=== PATIENT | female | born 1945 | race Caucasian/White ===

== ENCOUNTER → 2017-02-15 | Outpatient (CLI) | payer MEDICARE, BC ==
[~2017-02-15] MED LIST: AMPICILLIN 500500 MG PO; ASPIR 8181 MG PO; ASPIRIN EC81 MG PO; ATIVAN1 MG PO; CILOSTAZOL100 MG PO; CLARITIN10 MG PO; CYMBALTA20 MG PO; EXELON 4.6 MG TD; EXELON1 EAC1 TD; ISOSORBIDE MONO60 MG PO; K-DUR TAB 10 M10 MEQ PO; KLOR-CON M2020 MEQ PO; LASIX 40 MG TAB40 MG PO; LIPITOR TAB 2020 MG PO; NAMZARIC PO; NEURONTIN 300300 MG PO; NITROSTAT 0.40.4 MG SL; NORCO 7.5-3251 EACH PO; NORVASC10 MG PO; PLAVIX 75 MG TA75 MG PO; PROTONIX40 MG PO; SINGULAIR10 MG PO; TOPROL XL 25 MG25 MG PO; VITAMIN B-1000 MCG/M IM; ZOLOFT50 MG PO
== END ==
LOC: KOH-I 14:20
DX: M13.851 Other specified arthritis, right hip (principal); M54.5 Low back pain; S32.019A Unspecified fracture of first lumbar vertebra, initial encounter for closed fracture
CPT/HCPCS: 72110; 73522

== ENCOUNTER → 2017-02-28 | Outpatient (CLI) | payer MEDICARE, BC | LOC: KOH-I 13:45 | DX: M51.36 Other intervertebral disc degeneration, lumbar region (principal); G89.4 Chronic pain syndrome; M43.8X6 Other specified deforming dorsopathies, lumbar region; M43.16 Spondylolisthesis, lumbar region; M99.73 Connective tissue and disc stenosis of intervertebral foramina of lumbar region | CPT/HCPCS: 72131 ==

== ENCOUNTER → 2017-03-08 | Outpatient (CLI) | payer MEDICARE, BC | LOC: NM 07:47 | DX: S32.010A Wedge compression fracture of first lumbar vertebra, initial encounter for closed fracture (principal); M81.0 Age-related osteoporosis without current pathological fracture | CPT/HCPCS: 77080; 78300; A9503 ==

== ENCOUNTER → 2017-03-10 | Outpatient (CLI) | payer MEDICARE, BC ==
[2017-03-10 11:39] LABS: HEMOGLOBIN 13.5 gm/dl (12.3-15.3); RED BLOOD COUNT 4.62 M/UL (4.00-5.10); WHITE BLOOD COUNT 7.5 K/UL (4.5-11.0)
[2017-03-10 11:59] LABS: BUN/CREATININE RATIO 12 (0-10)
== END ==
LOC: OPSV2 10:48
PROVIDERS: Orthopaedic Surgery
DX: Z01.810 Encounter for preprocedural cardiovascular examination (principal); Z01.812 Encounter for preprocedural laboratory examination; M84.48XA Pathological fracture, other site, initial encounter for fracture; I25.10 Atherosclerotic heart disease of native coronary artery without angina pectoris
CPT/HCPCS: 36415; 80048; 85027; 93005

== ENCOUNTER → 2017-03-13 | Day surgery (SDC) | payer MEDICARE, BC ==
[~2017-03-13] VITALS: Ht 152.4 cm; Wt 55.3 kg
== END | disposition home or self-care (01) ==
LOC: OR 08:52
DX: S32.019A Unspecified fracture of first lumbar vertebra, initial encounter for closed fracture (principal); M81.0 Age-related osteoporosis without current pathological fracture; E78.5 Hyperlipidemia, unspecified; I25.10 Atherosclerotic heart disease of native coronary artery without angina pectoris; K21.9 Gastro-esophageal reflux disease without esophagitis; I11.0 Hypertensive heart disease with heart failure; I50.9 Heart failure, unspecified; G89.29 Other chronic pain; M19.90 Unspecified osteoarthritis, unspecified site; Z79.82 Long term (current) use of aspirin; Z79.891 Long term (current) use of opiate analgesic; Z79.02 Long term (current) use of antithrombotics/antiplatelets; Z79.899 Other long term (current) drug therapy; Z85.828 Personal history of other malignant neoplasm of skin; Z90.710 Acquired absence of both cervix and uterus; Z95.1 Presence of aortocoronary bypass graft; Z90.49 Acquired absence of other specified parts of digestive tract; Z87.440 Personal history of urinary (tract) infections; Z87.19 Personal history of other diseases of the digestive system; Z86.73 Personal history of transient ischemic attack (TIA), and cerebral infarction without residual deficits; W19.XXXA Unspecified fall, initial encounter
CPT/HCPCS: J0690; J1885; J2250; J2370; J2710; J3010; J7120; Q9962

== ENCOUNTER → 2017-03-31 | Outpatient (CLI) | payer MEDICARE, BC | LOC: CT 13:00 | DX: M51.36 Other intervertebral disc degeneration, lumbar region (principal); M35.3 Polymyalgia rheumatica; M13.861 Other specified arthritis, right knee; B96.81 Helicobacter pylori [H. pylori] as the cause of diseases classified elsewhere; D50.0 Iron deficiency anemia secondary to blood loss (chronic); D50.8 Other iron deficiency anemias; D64.89 Other specified anemias; E78.2 Mixed hyperlipidemia; G89.4 Chronic pain syndrome; G90.09 Other idiopathic peripheral autonomic neuropathy; I50.20 Unspecified systolic (congestive) heart failure; I13.0 Hypertensive heart and chronic kidney disease with heart failure and stage 1 through stage 4 chronic kidney disease, or unspecified chronic kidney disease; N18.3 Chronic kidney disease, stage 3 (moderate); I25.10 Atherosclerotic heart disease of native coronary artery without angina pectoris; I25.118 Atherosclerotic heart disease of native coronary artery with other forms of angina pectoris; I73.89 Other specified peripheral vascular diseases; J44.9 Chronic obstructive pulmonary disease, unspecified; J45.20 Mild intermittent asthma, uncomplicated; K25.7 Chronic gastric ulcer without hemorrhage or perforation; K27.4 Chronic or unspecified peptic ulcer, site unspecified, with hemorrhage; K58.0 Irritable bowel syndrome with diarrhea; K59.1 Functional diarrhea; K64.8 Other hemorrhoids; M80.08XA Age-related osteoporosis with current pathological fracture, vertebra(e), initial encounter for fracture; Q27.33 Arteriovenous malformation of digestive system vessel; R06.02 Shortness of breath; R19.7 Diarrhea, unspecified; R23.8 Other skin changes; R53.83 Other fatigue; Z98.1 Arthrodesis status | CPT/HCPCS: 72131 ==

== ENCOUNTER 2021-02-20 05:38 | Inpatient (IN) | payer MEDICARE, BC ==
[~2021-02-20] VITALS: Ht 152.4 cm; Wt 49.9 kg
[~2021-02-20 05:38] MED LIST changes: +ASPIR-LOW81 MG PO; +BACTRIM DS TAB1 EACH PO; +BENTYL 20MG TAB20 MG PO; +BUMEX 1MG TABLET1 MG PO; +CEFUROXIME500 MG PO; +CLARITIN10 M2 PO; +CLOPIDOGREL75 MG PO; +COZAAR 25MG TAB25 MG PO; +CYMBALTA30 MG PO; +CYMBALTA60 MG PO; +DICYCLOMINE HCL20 MG PO; +DOXYCYCLINE HY100 MG PO; +ECOTRIN81 MG PO; +EXELON1 EAC2 TD; +FERROUS SULFAT325 MG PO; +ISOSORBIDE MON120 MG PO; -ISOSORBIDE MONO60 MG PO; +K-DUR TAB 20 M20 MEQ PO; +KEFLEX CAP 500500 MG PO; +KEFLEX250 MG PO; +LASIX40 MG PO; +LEVAQUIN500 MG PO; +MAGNESIUM400 M2 PO; +MEGACE 400400 MG/10 PO; +METOPROLOL SUCC25 MG PO; +METOPROLOL TART25 MG PO; +MORPHINE PUMP; +MYCOSTATIN OINT15 GM TOP; +NORCO 5-325 TA1 EACH PO; +NORVASC 5 MG TAB5 MG PO; +NYSTATIN100000 UNI PO; +OMNICEF 300 MG300 MG PO; +PLETAL 100 MG100 MG PO; +PROTONIX 40 MG40 M1 PO; +PROVENTIL HFA6.7 GM INH; +RANEXA1000 MG PO; +SYMBICORT 16010.2 GM INH; +TOPROL XL25 MG PO; +TYLENOL 325MG325 MG PO; +TYLENOL 500 MG500 MG PO; +VENTOLIN HFA 66.7 GM INH; +ZANAFLEX4 MG PO; +ZOFRAN ODT 4 MG4 MG SL
[2021-02-20 06:35] LABS: HEMOGLOBIN 10.9 gm/dl (12.3-15.3); RED BLOOD COUNT 3.66 M/UL (4.00-5.10); WHITE BLOOD COUNT 6.8 K/UL (4.5-11.0)
[2021-02-20 07:08] LABS: BUN/CREATININE RATIO 28 (0-10)
[2021-02-20] MEDS ORDERED: HARD NAILS2500 MCG PO (10:49)
[2021-02-20] MEDS ORDERED: TYLENOL325 MG PO (10:49)
[2021-02-20] MEDS ORDERED: DAILY VALUE1 EACH PO (10:50)
[2021-02-20] MEDS ORDERED: ZOLOFT50 MG PO (10:51)
[2021-02-20] MEDS ORDERED: ZYLOPRIM 100 M100 MG PO (10:51)
[2021-02-20] MEDS ORDERED: COZAAR 50MG TAB50 MG PO (10:51)
[2021-02-20] MEDS ORDERED: ISOSORBIDE MON120 MG PO (10:52)
[2021-02-21 05:49] LABS: HEMOGLOBIN 11.1 gm/dl (12.3-15.3); RED BLOOD COUNT 3.67 M/UL (4.00-5.10)
[2021-02-21] MEDS ORDERED: MACROBID 100 M100 MG PO (14:19)
[2021-03-15] MEDS ORDERED: ATORVASTATIN CA20 MG PO (09:15)
[2021-03-16] MEDS ORDERED: SINGULAIR10 MG PO (09:19)
== END 2021-02-21 17:20 | disposition home health service (06) | DRG 871 ==
LOC: ER1 05:38 → CDU 09:50 → MED SURG 4 17:27
PROVIDERS: Family Medicine; Physician Assistant; ADMIT Internal Medicine
DX: A41.9 Sepsis, unspecified organism (principal); G93.41 Metabolic encephalopathy; I50.43 Acute on chronic combined systolic (congestive) and diastolic (congestive) heart failure; N30.00 Acute cystitis without hematuria; N17.9 Acute kidney failure, unspecified; I13.0 Hypertensive heart and chronic kidney disease with heart failure and stage 1 through stage 4 chronic kidney disease, or unspecified chronic kidney disease; E86.0 Dehydration; Z20.822 Contact with and (suspected) exposure to COVID-19; B96.89 Other specified bacterial agents as the cause of diseases classified elsewhere; I25.10 Atherosclerotic heart disease of native coronary artery without angina pectoris; I49.5 Sick sinus syndrome; R63.0 Anorexia; I10 Essential (primary) hypertension; I95.9 Hypotension, unspecified; I27.20 Pulmonary hypertension, unspecified; I34.0 Nonrheumatic mitral (valve) insufficiency; I07.1 Rheumatic tricuspid insufficiency; G89.29 Other chronic pain; M54.9 Dorsalgia, unspecified; I73.9 Peripheral vascular disease, unspecified; N18.30 Chronic kidney disease, stage 3 unspecified; Z96.659 Presence of unspecified artificial knee joint; I25.2 Old myocardial infarction; Z98.49 Cataract extraction status, unspecified eye; Z88.6 Allergy status to analgesic agent; Z87.891 Personal history of nicotine dependence; Z95.1 Presence of aortocoronary bypass graft; Z95.0 Presence of cardiac pacemaker; Z85.828 Personal history of other malignant neoplasm of skin; Z87.312 Personal history of (healed) stress fracture
CPT/HCPCS: 36415; 70450; 71045; 80048; 80053; 81001; 82550; 82553; 83605; 83874; 84484; 85025; 85610; 87040; 87077; 87086; 87186; 93005; 94640; 99285; J0696; U0002

== ENCOUNTER 2021-03-14 17:30 | Emergency (ER) | payer MEDICARE, BC ==
[~2021-03-14 17:30] MED LIST changes: +COZAAR 50MG TAB50 MG PO; +DAILY VALUE1 EACH PO; +HARD NAILS2500 MCG PO; +MACROBID 100 M100 MG PO; +TYLENOL325 MG PO; +ZYLOPRIM 100 M100 MG PO
[2021-03-14 20:04] LABS: HEMOGLOBIN 12.3 gm/dl (12.3-15.3); RED BLOOD COUNT 4.01 M/UL (4.00-5.10); WHITE BLOOD COUNT 7.1 K/UL (4.5-11.0)
[2021-03-14] MEDS ORDERED: MACROBID 100 M100 MG PO (21:34)
[2021-03-15] MEDS ORDERED: ATORVASTATIN CA20 MG PO (09:15)
[2021-03-16] MEDS ORDERED: SINGULAIR10 MG PO (09:19)
== END 2021-03-14 22:18 | disposition home or self-care (01) ==
LOC: ER1 17:30
PROVIDERS: Physician Assistant
DX: N39.0 Urinary tract infection, site not specified (principal); I11.0 Hypertensive heart disease with heart failure; Z90.49 Acquired absence of other specified parts of digestive tract; I50.9 Heart failure, unspecified; Z90.710 Acquired absence of both cervix and uterus
CPT/HCPCS: 80053; 81001; 85025; 99284

== ENCOUNTER 2021-03-16 09:46 | Inpatient (IN) | payer MEDICARE, BC ==
[~2021-03-16] VITALS: Ht 152.4 cm; Wt 53.8 kg
[~2021-03-16 09:46] MED LIST changes: +ATORVASTATIN CA20 MG PO
[2021-03-16] MEDS ORDERED: EXELON1 EAC2 TD (10:52)
[2021-03-16 11:10] LABS: RED BLOOD COUNT 3.93 M/UL (4.00-5.10); WHITE BLOOD COUNT 6.8 K/UL (4.5-11.0)
[2021-03-16] MEDS ORDERED: ATIVAN 1MG TABLE1 MG PO (15:53)
[2021-03-16] MEDS ORDERED: MACROBID 100 M100 MG PO (15:53)
[2021-03-16] MEDS ORDERED: PLAVIX 75 MG TA75 MG PO (15:54)
[2021-03-16] MEDS ORDERED: K-DUR TAB 20 M20 MEQ PO (15:56)
[2021-03-16] MEDS ORDERED: AMLODIPINE BESYL5 MG PO (15:57)
[2021-03-16] MEDS ORDERED: BUMETANIDE1 MG PO (16:00)
[2021-03-16] MEDS ORDERED: ISOSORBIDE MON120 MG PO (16:02)
[2021-03-16] MEDS ORDERED: MORPHINE PUMP (16:06)
[2021-03-16] MEDS ORDERED: VITAMIN D325 MCG PO (16:19)
[2021-03-17 03:21] LABS: RED BLOOD COUNT 3.62 M/UL (4.00-5.10)
[2021-03-17 03:24] LABS: WHITE BLOOD COUNT 3.9 K/UL (4.5-11.0)
[2021-03-18] MEDS ORDERED: ISOSORBIDE MONO60 MG PO (11:24)
[2021-03-18] MEDS ORDERED: AMLODIPINE BESY10 MG PO (11:24)
[2021-03-18] MEDS ORDERED: OMNICEF 300 MG300 MG PO (11:24)
== END 2021-03-18 13:00 | disposition home or self-care (01) | DRG 682 ==
LOC: ER1 09:46 → CDU 13:41 → PROG CARE 13:41
PROVIDERS: Physician Assistant; Physician Assistant Medical; ADMIT Internal Medicine
PROC: 3E033XZ Introduction of Vasopressor into Peripheral Vein, Percutaneous Approach (ICD-10-PCS; principal; 2021-03-16)
DX: N17.9 Acute kidney failure, unspecified (principal); J96.01 Acute respiratory failure with hypoxia; N39.0 Urinary tract infection, site not specified; E87.1 Hypo-osmolality and hyponatremia; I50.42 Chronic combined systolic (congestive) and diastolic (congestive) heart failure; I13.0 Hypertensive heart and chronic kidney disease with heart failure and stage 1 through stage 4 chronic kidney disease, or unspecified chronic kidney disease; I95.2 Hypotension due to drugs; Z20.822 Contact with and (suspected) exposure to COVID-19; I27.20 Pulmonary hypertension, unspecified; I34.0 Nonrheumatic mitral (valve) insufficiency; I73.9 Peripheral vascular disease, unspecified; G89.29 Other chronic pain; N18.30 Chronic kidney disease, stage 3 unspecified; I25.10 Atherosclerotic heart disease of native coronary artery without angina pectoris; T50.2X5A Adverse effect of carbonic-anhydrase inhibitors, benzothiadiazides and other diuretics, initial encounter; K59.00 Constipation, unspecified; E78.5 Hyperlipidemia, unspecified; Z96.653 Presence of artificial knee joint, bilateral; D63.1 Anemia in chronic kidney disease; E86.1 Hypovolemia; I49.5 Sick sinus syndrome; M35.3 Polymyalgia rheumatica; K21.9 Gastro-esophageal reflux disease without esophagitis; F41.9 Anxiety disorder, unspecified; F32.9 Major depressive disorder, single episode, unspecified; F17.210 Nicotine dependence, cigarettes, uncomplicated; I25.2 Old myocardial infarction; Z87.440 Personal history of urinary (tract) infections; Z95.0 Presence of cardiac pacemaker; Z95.1 Presence of aortocoronary bypass graft; Z95.5 Presence of coronary angioplasty implant and graft; Z85.828 Personal history of other malignant neoplasm of skin; Z87.81 Personal history of (healed) traumatic fracture; Z98.42 Cataract extraction status, left eye; Z98.41 Cataract extraction status, right eye; Z88.1 Allergy status to other antibiotic agents; Z86.73 Personal history of transient ischemic attack (TIA), and cerebral infarction without residual deficits; Z90.710 Acquired absence of both cervix and uterus; Z90.49 Acquired absence of other specified parts of digestive tract; Z82.62 Family history of osteoporosis; Z82.5 Family history of asthma and other chronic lower respiratory diseases
CPT/HCPCS: 36415; 36600; 70450; 71045; 80053; 81001; 82550; 82553; 82803; 83605; 83874; 83880; 84484; 85025; 87040; 93005; 96365; 99284; 99285; J0696; J7030; Q9967; U0002

== ENCOUNTER → 2021-05-28 | Outpatient (CLI) | payer MEDICARE, BC ==
[~2021-05-28] MED LIST changes: +ADULT LOW DOSE81 MG PO; +AMLODIPINE BESY10 MG PO; +AMLODIPINE BESYL5 MG PO; +ATIVAN 1MG TABLE1 MG PO; +BUMETANIDE1 MG PO; +CEFUROXIME250 MG PO; +ISOSORBIDE MONO60 MG PO; +MONTELUKAST SOD10 MG PO; +SERTRALINE HCL50 MG PO; +VITAMIN D325 MC6 PO; +VITAMIN D325 MCG PO; +ZANAFLEX 4 MG TA4 MG PO; +ZYLOPRIM100 MG PO
== END ==
LOC: KOH-I 15:23
DX: M51.36 Other intervertebral disc degeneration, lumbar region (principal); M47.816 Spondylosis without myelopathy or radiculopathy, lumbar region
CPT/HCPCS: 72110

== ENCOUNTER 2021-07-25 14:10 | Inpatient (IN) | payer MEDICARE, BC ==
[~2021-07-25] VITALS: Ht 152.4 cm; Wt 56.3 kg
[~2021-07-25 14:10] MED LIST changes: -ADULT LOW DOSE81 MG PO; -CEFUROXIME250 MG PO; -MONTELUKAST SOD10 MG PO; -SERTRALINE HCL50 MG PO; -VITAMIN D325 MC6 PO; -ZANAFLEX 4 MG TA4 MG PO; -ZYLOPRIM100 MG PO
[2021-07-25 14:56] LABS: HEMOGLOBIN 11.2 gm/dl (12.3-15.3); RED BLOOD COUNT 3.95 M/UL (4.00-5.10); WHITE BLOOD COUNT 6.4 K/UL (4.5-11.0)
[2021-07-25 15:17] LABS: BUN/CREATININE RATIO 11 (0-10)
[2021-07-25] MEDS ORDERED: PLAVIX 75 MG TA75 MG PO (20:56)
[2021-07-25] MEDS ORDERED: SERTRALINE HCL50 MG PO (20:58)
[2021-07-25] MEDS ORDERED: ISOSORBIDE MONO60 MG PO (20:58)
[2021-07-25] MEDS ORDERED: ZYLOPRIM100 MG PO (20:59)
[2021-07-25] MEDS ORDERED: LIPITOR TAB 2020 MG PO (21:00)
[2021-07-25] MEDS ORDERED: VITAMIN D325 MC6 PO (21:00)
[2021-07-25] MEDS ORDERED: MONTELUKAST SOD10 MG PO (21:01)
[2021-07-25] MEDS ORDERED: AMLODIPINE BESYL5 MG PO (21:01)
[2021-07-25] MEDS ORDERED: EXELON1 EAC2 TD (21:02)
[2021-07-25] MEDS ORDERED: MORPHINE PUMP (21:04)
[2021-07-25] MEDS ORDERED: ATIVAN1 MG PO (21:04)
[2021-07-25] MEDS ORDERED: ADULT LOW DOSE81 MG PO (21:05)
[2021-07-25] MEDS ORDERED: ZANAFLEX 4 MG TA4 MG PO (21:05)
[2021-07-26 03:47] LABS: RED BLOOD COUNT 3.84 M/UL (4.00-5.10); WHITE BLOOD COUNT 5.4 K/UL (4.5-11.0)
[2021-07-27 03:37] LABS: HEMOGLOBIN 11.7 gm/dl (12.3-15.3); RED BLOOD COUNT 4.12 M/UL (4.00-5.10); WHITE BLOOD COUNT 4.9 K/UL (4.5-11.0)
[2021-07-27] MEDS ORDERED: CEFUROXIME250 MG PO (08:49)
== END 2021-07-27 13:11 | disposition home health service (06) | DRG 689 ==
LOC: ER1 14:10 → PROG CARE 17:19 → CDU 17:19 → PROG CARE 07-26 17:04
PROVIDERS: Physician Assistant; ADMIT Internal Medicine
DX: N30.00 Acute cystitis without hematuria (principal); G93.41 Metabolic encephalopathy; J96.01 Acute respiratory failure with hypoxia; Z20.822 Contact with and (suspected) exposure to COVID-19; I50.42 Chronic combined systolic (congestive) and diastolic (congestive) heart failure; I13.0 Hypertensive heart and chronic kidney disease with heart failure and stage 1 through stage 4 chronic kidney disease, or unspecified chronic kidney disease; B96.20 Unspecified Escherichia coli [E. coli] as the cause of diseases classified elsewhere; F03.90 Unspecified dementia, unspecified severity, without behavioral disturbance, psychotic disturbance, mood disturbance, and anxiety; E87.6 Hypokalemia; I16.0 Hypertensive urgency; I27.20 Pulmonary hypertension, unspecified; N18.30 Chronic kidney disease, stage 3 unspecified; I08.1 Rheumatic disorders of both mitral and tricuspid valves; I73.9 Peripheral vascular disease, unspecified; Z96.659 Presence of unspecified artificial knee joint; F17.210 Nicotine dependence, cigarettes, uncomplicated; I49.5 Sick sinus syndrome; I25.10 Atherosclerotic heart disease of native coronary artery without angina pectoris; Z95.1 Presence of aortocoronary bypass graft; Z87.440 Personal history of urinary (tract) infections; I25.2 Old myocardial infarction; Z95.0 Presence of cardiac pacemaker; Z98.42 Cataract extraction status, left eye; Z98.41 Cataract extraction status, right eye; Z88.1 Allergy status to other antibiotic agents; Z87.310 Personal history of (healed) osteoporosis fracture; Z90.710 Acquired absence of both cervix and uterus
CPT/HCPCS: 36415; 36600; 51701; 70450; 71045; 80048; 80053; 81001; 82550; 82553; 82803; 83605; 83874; 83880; 84484; 85025; 87040; 87077; 87086; 87186; 93005; 96374; 99285; J0696; U0002

== ENCOUNTER 2021-09-21 20:22 | Inpatient (IN) | payer MEDICARE, BC ==
[~2021-09-21] VITALS: Ht 152.4 cm; Wt 55.8 kg
[~2021-09-21 20:22] MED LIST changes: +ADULT LOW DOSE81 MG PO; +CEFUROXIME250 MG PO; +MONTELUKAST SOD10 MG PO; +SERTRALINE HCL50 MG PO; +VITAMIN D325 MC6 PO; +ZANAFLEX 4 MG TA4 MG PO; +ZYLOPRIM100 MG PO
[2021-09-21 20:54] LABS: HEMOGLOBIN 12.2 gm/dl (12.3-15.3); RED BLOOD COUNT 4.17 M/UL (4.00-5.10); WHITE BLOOD COUNT 6.3 K/UL (4.5-11.0)
[2021-09-22 07:41] LABS: HEMOGLOBIN 12.9 gm/dl (12.3-15.3); RED BLOOD COUNT 4.41 M/UL (4.00-5.10); WHITE BLOOD COUNT 5.4 K/UL (4.5-11.0)
[2021-09-23 07:29] LABS: HEMOGLOBIN 13.2 gm/dl (12.3-15.3); RED BLOOD COUNT 4.62 M/UL (4.00-5.10); WHITE BLOOD COUNT 5.7 K/UL (4.5-11.0)
[2021-09-23 08:07] LABS: BUN/CREATININE RATIO 10 (0-10)
[2021-09-24 05:49] LABS: HEMOGLOBIN 13.2 gm/dl (12.3-15.3); RED BLOOD COUNT 4.51 M/UL (4.00-5.10); WHITE BLOOD COUNT 4.4 K/UL (4.5-11.0)
--- NOTE | 2021-09-24 10:21 | NUR ---
TELEMETRY NOTIFICATION OF V-TACH. PATIENT IS ALERT, VERBAL. JUST AMBULATED TO THE RESTROOM. PATIENT DENIES PAIN, DENIES SHORTNESS OF BREATH. BP 179/86, HEART RATE CURRENTLY 106. NOTIFIED DR. CULP, NEW ORDER NOTED FOR STAT EKG. WILL NOTIFY OF RESULTS.
== END 2021-09-24 15:28 | disposition home health service (06) | DRG 689 ==
LOC: ER1 20:22 → PROG CARE 22:36 → M/S 22:36 → CDU 22:36 → PROG CARE 09-22 04:37 → M/S 09-22 16:47
PROVIDERS: Emergency Medicine; Internal Medicine; ADMIT Internal Medicine
DX: N30.00 Acute cystitis without hematuria (principal); G93.41 Metabolic encephalopathy; I13.0 Hypertensive heart and chronic kidney disease with heart failure and stage 1 through stage 4 chronic kidney disease, or unspecified chronic kidney disease; I50.42 Chronic combined systolic (congestive) and diastolic (congestive) heart failure; N17.9 Acute kidney failure, unspecified; Z16.12 Extended spectrum beta lactamase (ESBL) resistance; Z20.822 Contact with and (suspected) exposure to COVID-19; F03.90 Unspecified dementia, unspecified severity, without behavioral disturbance, psychotic disturbance, mood disturbance, and anxiety; I73.9 Peripheral vascular disease, unspecified; E78.5 Hyperlipidemia, unspecified; I27.20 Pulmonary hypertension, unspecified; B96.20 Unspecified Escherichia coli [E. coli] as the cause of diseases classified elsewhere; I49.5 Sick sinus syndrome; I34.0 Nonrheumatic mitral (valve) insufficiency; N18.30 Chronic kidney disease, stage 3 unspecified; I25.10 Atherosclerotic heart disease of native coronary artery without angina pectoris; Z95.1 Presence of aortocoronary bypass graft; Z85.828 Personal history of other malignant neoplasm of skin; Z95.0 Presence of cardiac pacemaker; I25.2 Old myocardial infarction; Z88.1 Allergy status to other antibiotic agents; Z95.5 Presence of coronary angioplasty implant and graft; Z87.891 Personal history of nicotine dependence
CPT/HCPCS: 36415; 70450; 70496; 70498; 71045; 80048; 80053; 81001; 82550; 82553; 83605; 83735; 83874; 83880; 84100; 84439; 84443; 84484; 85025; 85027; 85610; 85730; 87040; 87077; 87086; 87186; 93005; 99285; J0360; J0696; J1335; J1644; Q9967; U0002

== ENCOUNTER → 2021-09-25 | Outpatient (CLI) | payer MEDICARE, BC ==
[~2021-09-25] MED LIST changes: +HYDROCODON-ACE1 EAC4 PO
== END ==
LOC: OPSV 07:00
DX: N39.0 Urinary tract infection, site not specified (principal)
CPT/HCPCS: 96365; J1335

== ENCOUNTER → 2021-09-26 | Outpatient (CLI) | payer MEDICARE, BC ==
[~2021-09-26] VITALS: Ht 152.4 cm; Wt 55.8 kg
== END ==
LOC: OPSV 06:53
DX: N39.0 Urinary tract infection, site not specified (principal); Z16.12 Extended spectrum beta lactamase (ESBL) resistance
CPT/HCPCS: 96365; J1335

== ENCOUNTER → 2021-09-27 | Outpatient (CLI) | payer MEDICARE, BC ==
[~2021-09-27] VITALS: Ht 152.4 cm; Wt 55.8 kg
== END ==
LOC: OPSV 08:00
DX: N30.00 Acute cystitis without hematuria (principal); G93.41 Metabolic encephalopathy
CPT/HCPCS: 96365; J1335

== ENCOUNTER → 2021-09-28 | Outpatient (CLI) | payer MEDICARE, BC | LOC: OPSV 08:00 | DX: N39.0 Urinary tract infection, site not specified (principal); Z16.12 Extended spectrum beta lactamase (ESBL) resistance | CPT/HCPCS: 96365; J1335 ==

== ENCOUNTER 2021-09-29 13:57 | Inpatient (IN) | payer MEDICARE, BC ==
[~2021-09-29] VITALS: Ht 172.7 cm; Wt 53.1 kg
[~2021-09-29 13:57] MED LIST changes: -HYDROCODON-ACE1 EAC4 PO
[2021-09-29 16:17] LABS: RED BLOOD COUNT 3.79 M/UL (4.00-5.10); WHITE BLOOD COUNT 5.1 K/UL (4.5-11.0)
[2021-09-29 16:19] LABS: HEMOGLOBIN 10.7 gm/dl (12.3-15.3)
[2021-09-29 16:46] LABS: BUN/CREATININE RATIO 7 (0-10)
[2021-09-30 06:46] LABS: HEMOGLOBIN 12.2 gm/dl (12.3-15.3); WHITE BLOOD COUNT 5.7 K/UL (4.5-11.0)
[2021-09-30 06:52] LABS: RED BLOOD COUNT 4.32 M/UL (4.00-5.10)
[2021-09-30 07:05] LABS: BUN/CREATININE RATIO 7 (0-10)
[2021-10-01 07:35] LABS: HEMOGLOBIN 13.4 gm/dl (12.3-15.3); WHITE BLOOD COUNT 5.3 K/UL (4.5-11.0)
[2021-10-01 07:36] LABS: RED BLOOD COUNT 4.78 M/UL (4.00-5.10)
--- NOTE | 2021-10-01 12:06 | NUR ---
1145 02 sat 83% on room air.
[2021-10-01] MEDS ORDERED: HYDROCODON-ACE1 EAC4 PO (17:10)
== END 2021-10-01 18:30 | disposition home or self-care (01) | DRG 551 ==
LOC: ER1 13:57 → CDU 18:49 → M/S 18:49
PROVIDERS: Student in an Organized Health Care Education/Training Program; ADMIT Internal Medicine
PROC: B24BZZZ Ultrasonography of Heart with Aorta (ICD-10-PCS; principal; 2021-09-30)
DX: S32.039A Unspecified fracture of third lumbar vertebra, initial encounter for closed fracture (principal); J96.01 Acute respiratory failure with hypoxia; Z20.822 Contact with and (suspected) exposure to COVID-19; J98.11 Atelectasis; I13.0 Hypertensive heart and chronic kidney disease with heart failure and stage 1 through stage 4 chronic kidney disease, or unspecified chronic kidney disease; I50.42 Chronic combined systolic (congestive) and diastolic (congestive) heart failure; E44.0 Moderate protein-calorie malnutrition; Z68.1 Body mass index [BMI] 19.9 or less, adult; I49.5 Sick sinus syndrome; G89.29 Other chronic pain; I27.20 Pulmonary hypertension, unspecified; I34.0 Nonrheumatic mitral (valve) insufficiency; N18.30 Chronic kidney disease, stage 3 unspecified; I73.9 Peripheral vascular disease, unspecified; W01.0XXA Fall on same level from slipping, tripping and stumbling without subsequent striking against object, initial encounter; Z95.0 Presence of cardiac pacemaker; Y92.009 Unspecified place in unspecified non-institutional (private) residence as the place of occurrence of the external cause; Z88.1 Allergy status to other antibiotic agents; Z87.440 Personal history of urinary (tract) infections; Z95.1 Presence of aortocoronary bypass graft; Z82.49 Family history of ischemic heart disease and other diseases of the circulatory system; Z97.8 Presence of other specified devices; Z90.49 Acquired absence of other specified parts of digestive tract
CPT/HCPCS: ECHO; 36415; 36600; 71045; 80048; 80053; 81001; 82550; 82553; 82803; 83605; 83735; 83874; 83880; 84484; 85025; 85027; 87040; 87077; 87086; 87186; 93005; 93306; 99285; J1650; J3486; Q9967; U0002

== ENCOUNTER → 2021-12-08 | Outpatient (CLI) | payer MEDICARE, BC ==
[~2021-12-08] MED LIST changes: +HYDROCODON-ACE1 EAC4 PO
== END ==
LOC: KOH-I 14:49
DX: W19.XXXA Unspecified fall, initial encounter (principal); G31.9 Degenerative disease of nervous system, unspecified
CPT/HCPCS: 70450

== ENCOUNTER → 2021-12-21 | Outpatient (CLI) | payer MEDICARE, BC | LOC: CT 10:45 | DX: I65.23 Occlusion and stenosis of bilateral carotid arteries (principal) | CPT/HCPCS: 36415; 70498; 82565; 84520; Q9967 ==

== ENCOUNTER 2021-12-29 10:27 | Emergency (ER) | payer MEDICARE, BC ==
[2021-12-29 12:28] LABS: HEMOGLOBIN 11.6 gm/dl (12.3-15.3); RED BLOOD COUNT 4.04 M/UL (4.00-5.10)
[2021-12-29 12:41] LABS: BUN/CREATININE RATIO 9 (0-10)
== END 2021-12-29 23:41 | disposition short-term general hospital (02) ==
LOC: ER1 10:27
PROVIDERS: Emergency Medicine
DX: F23 Brief psychotic disorder (principal); Z20.822 Contact with and (suspected) exposure to COVID-19
CPT/HCPCS: 80048; 80307; 81001; 83605; 84484; 85025; 87040; 93005; 96374; 99285; G0480; J0360; U0002

== ENCOUNTER → 2022-01-06 | Outpatient (CLI) | payer MEDICARE, BC | LOC: OPSV 14:00 | DX: N30.00 Acute cystitis without hematuria (principal) | CPT/HCPCS: 96372; J0696 ==

== ENCOUNTER → 2022-01-07 | Outpatient (CLI) | payer MEDICARE, BC ==
[~2022-01-07] VITALS: Ht 152.4 cm; Wt 52.2 kg
== END ==
LOC: OPSV 14:49
DX: N30.00 Acute cystitis without hematuria (principal)
CPT/HCPCS: 96372; J0696

== ENCOUNTER → 2022-01-08 | Outpatient (CLI) | payer MEDICARE, BC ==
[~2022-01-08] VITALS: Ht 152.4 cm; Wt 52.2 kg
== END ==
LOC: OPSV 07:00 → EROP 10:39
DX: N30.00 Acute cystitis without hematuria (principal)
CPT/HCPCS: 96372; J0696

== ENCOUNTER 2022-01-09 13:34 | Emergency (ER) | payer MEDICARE, BC ==
[2022-01-09 15:14] LABS: RED BLOOD COUNT 3.76 M/UL (4.00-5.10); WHITE BLOOD COUNT 5.4 K/UL (4.5-11.0)
== END 2022-01-09 17:50 | disposition home or self-care (01) ==
LOC: ER1 13:34 → OPSV 13:34 → EDSTATUS 15:00 → ER1 17:50
PROVIDERS: Family Medicine
DX: N28.9 Disorder of kidney and ureter, unspecified (principal); F03.91 Unspecified dementia, unspecified severity, with behavioral disturbance; I95.9 Hypotension, unspecified; R19.7 Diarrhea, unspecified; R09.02 Hypoxemia; R82.81 Pyuria; Z20.822 Contact with and (suspected) exposure to COVID-19
CPT/HCPCS: 36600; 71045; 80053; 81001; 82550; 82553; 82803; 83605; 83880; 84484; 85025; 87040; 87086; 93005; 96374; 99284; J0696; J7030; U0002

== ENCOUNTER → 2022-01-10 | Outpatient (CLI) | payer MEDICARE, BC ==
[~2022-01-10] VITALS: Ht 152.4 cm; Wt 52.2 kg
== END ==
LOC: OPSV 14:37
DX: N30.00 Acute cystitis without hematuria (principal)
CPT/HCPCS: 96372; J0696

== ENCOUNTER → 2022-01-11 | Outpatient (CLI) | payer MEDICARE, BC ==
[~2022-01-11] VITALS: Ht 152.4 cm; Wt 52.2 kg
== END ==
LOC: OPSV 14:34
DX: N30.00 Acute cystitis without hematuria (principal)
CPT/HCPCS: 96372

== ENCOUNTER 2022-02-02 10:13 | Emergency (ER) | payer MEDICARE, BC ==
[2022-02-02 11:52] LABS: HEMOGLOBIN 12.1 gm/dl (12.3-15.3); RED BLOOD COUNT 4.24 M/UL (4.00-5.10); WHITE BLOOD COUNT 4.3 K/UL (4.5-11.0)
[2022-02-02] MEDS ORDERED: KLOR-CON M2020 MEQ PO (16:23)
[2022-02-03 23:45] LABS: KPC-CARBAPENEM-RESISTANCE GENE Not Detected (Negative); STAPHYLOCOCCUS AUREUS Not Detected (Negative); STREP AGALACTIAE (GROUP B) Not Detected (Negative); STREP PYOGENES (GROUP A) Not Detected (Negative); STREPTOCOCCUS Not Detected (Negative); vanA/B (VANCOMYCIN RESIST GENE Not Detected (Negative)
[2022-02-03 23:46] LABS: CANDIDA ALBICANS Not Detected (Negative); CANDIDA KRUSEI Not Detected (Negative); CANDIDA TROPICALIS Not Detected (Negative); ESCHERICHIA COLI Not Detected (Negative); HAEMOPHILUS INFLUENZAE Not Detected (Negative); KLEBSIELLA OXYTOCA Not Detected (Negative); KLEBSIELLA PNEUMONIAE Not Detected (Negative); PROTEUS Not Detected (Negative); PSEUDOMONAS AERUGINOSA Not Detected (Negative); SERRATIA MARCESANS Not Detected (Negative)
[2022-02-04 01:03] LABS: STAPHYLOCOCCUS DETECTED (Negative)
== END 2022-02-02 17:14 | disposition home or self-care (01) ==
LOC: ER1 10:13
PROVIDERS: Emergency Medicine
DX: E87.6 Hypokalemia (principal); I11.0 Hypertensive heart disease with heart failure; I50.9 Heart failure, unspecified; I25.10 Atherosclerotic heart disease of native coronary artery without angina pectoris
CPT/HCPCS: 36600; 51701; 70450; 71045; 80053; 81001; 82550; 82553; 82803; 82962; 84484; 85025; 87040; 87150; 93005; 96365; 96375; 99285; J3480

== ENCOUNTER → 2022-05-19 | Outpatient (CLI) | payer MEDICARE, BC ==
[~2022-05-19] MED LIST changes: +AUGMENTIN 500-500 MG PO; +ESTRADIOL42.5 GM VG; +LOSARTAN POTASS25 MG PO; +MIRTAZAPINE7.5 MG PO; +NAMENDA 5 MG TAB5 MG PO; +QUETIAPINE FUMA25 MG PO
== END ==
LOC: CT 08:00
DX: M25.551 Pain in right hip (principal); W01.0XXA Fall on same level from slipping, tripping and stumbling without subsequent striking against object, initial encounter; R93.7 Abnormal findings on diagnostic imaging of other parts of musculoskeletal system; R93.41 Abnormal radiologic findings on diagnostic imaging of renal pelvis, ureter, or bladder
CPT/HCPCS: 72192

== ENCOUNTER 2022-06-07 17:19 | Emergency (ER) | payer MEDICARE, BC | END 2022-06-07 20:57 | disposition home or self-care (01) | LOC: ER1 17:19 | DX: S51.811A Laceration without foreign body of right forearm, initial encounter (principal); I10 Essential (primary) hypertension; Z79.02 Long term (current) use of antithrombotics/antiplatelets; W01.10XA Fall on same level from slipping, tripping and stumbling with subsequent striking against unspecified object, initial encounter; Y92.009 Unspecified place in unspecified non-institutional (private) residence as the place of occurrence of the external cause; Z23 Encounter for immunization | CPT/HCPCS: 12005; 73090; 90471; 90715; 99283 ==

== ENCOUNTER 2022-07-05 10:02 | Emergency (ER) | payer MEDICARE, BC ==
[2022-07-05 11:01] LABS: HEMOGLOBIN 10.4 gm/dl (12.3-15.3); RED BLOOD COUNT 3.62 M/UL (4.00-5.10); WHITE BLOOD COUNT 5.8 K/UL (4.5-11.0)
[2022-07-05] MEDS ORDERED: OMNICEF 300 MG300 MG PO (13:48)
== END 2022-07-05 14:08 | disposition home or self-care (01) ==
LOC: ER1 10:02
PROVIDERS: Physician Assistant
DX: S32.039A Unspecified fracture of third lumbar vertebra, initial encounter for closed fracture (principal); S70.01XA Contusion of right hip, initial encounter; N39.0 Urinary tract infection, site not specified; I51.9 Heart disease, unspecified; Z95.1 Presence of aortocoronary bypass graft; W19.XXXA Unspecified fall, initial encounter
CPT/HCPCS: 51701; 70450; 72125; 72128; 72131; 73502; 80053; 81001; 82550; 82553; 84484; 85025; 87086; 93005; 96374; 99284; J0696

== ENCOUNTER 2022-07-22 12:57 | Inpatient (IN) | payer MEDICARE, BC ==
[~2022-07-22] VITALS: Ht 152.4 cm; Wt 54.9 kg
[~2022-07-22 12:57] MED LIST changes: -QUETIAPINE FUMA25 MG PO; +QUETIAPINE FUMA50 MG PO
[2022-07-22 14:31] LABS: HEMOGLOBIN 10.7 gm/dl (12.3-15.3); RED BLOOD COUNT 3.75 M/UL (4.00-5.10); WHITE BLOOD COUNT 4.9 K/UL (4.5-11.0)
[2022-07-22] MEDS ORDERED: AMLODIPINE BESYL5 MG PO (18:25)
[2022-07-22] MEDS ORDERED: CEPHALEXIN250 MG PO (18:26)
[2022-07-22] MEDS ORDERED: LEVOTHYROXINE25 MCG PO (18:27)
[2022-07-22] MEDS ORDERED: MONTELUKAST SOD10 MG PO (18:28)
[2022-07-23 04:13] LABS: HEMOGLOBIN 11.8 gm/dl (12.3-15.3); RED BLOOD COUNT 4.12 M/UL (4.00-5.10); WHITE BLOOD COUNT 4.1 K/UL (4.5-11.0)
[2022-07-23 05:25] LABS: BUN/CREATININE RATIO 11 (0-10)
[2022-07-25 03:57] LABS: HEMOGLOBIN 11.9 gm/dl (12.3-15.3); RED BLOOD COUNT 4.14 M/UL (4.00-5.10)
[2022-07-25 04:01] LABS: WHITE BLOOD COUNT 2.8 K/UL (4.5-11.0)
[2022-07-25] MEDS ORDERED: ASPIRIN EC81 MG PO (11:24)
[2022-07-25] MEDS ORDERED: DOXYCYCLINE HY100 MG PO (11:24)
[2022-07-25] MEDS ORDERED: CEFDINIR300 MG PO (11:24)
[2022-07-25] MEDS ORDERED: DECADRON6 MG PO (11:24)
[2022-07-25] MEDS ORDERED: METOPROLOL TART25 MG PO (11:24)
[2022-07-25] MEDS ORDERED: LASIX20 MG PO (11:31)
== END 2022-07-25 12:35 | disposition home or self-care (01) | DRG 871 ==
LOC: ER1 12:57 → PROG CARE 17:06 → CDU 17:06 → PROG CARE 22:03
PROVIDERS: Family Medicine; Physician Assistant Medical; ADMIT Internal Medicine
PROC: 8E0ZXY6 Isolation (ICD-10-PCS; principal; 2022-07-22)
PROC: 3E03329 Introduction of Other Anti-infective into Peripheral Vein, Percutaneous Approach (ICD-10-PCS; 2022-07-22)
PROC: 3E033XZ Introduction of Vasopressor into Peripheral Vein, Percutaneous Approach (ICD-10-PCS; 2022-07-22)
PROC: B24BZZZ Ultrasonography of Heart with Aorta (ICD-10-PCS; 2022-07-23)
DX: A41.9 Sepsis, unspecified organism (principal); I21.A1 Myocardial infarction type 2; R65.21 Severe sepsis with septic shock; U07.1 COVID-19; J96.21 Acute and chronic respiratory failure with hypoxia; J12.82 Pneumonia due to coronavirus disease 2019; N30.00 Acute cystitis without hematuria; I13.0 Hypertensive heart and chronic kidney disease with heart failure and stage 1 through stage 4 chronic kidney disease, or unspecified chronic kidney disease; I50.32 Chronic diastolic (congestive) heart failure; E55.9 Vitamin D deficiency, unspecified; E03.9 Hypothyroidism, unspecified; F03.90 Unspecified dementia, unspecified severity, without behavioral disturbance, psychotic disturbance, mood disturbance, and anxiety; I73.9 Peripheral vascular disease, unspecified; M54.9 Dorsalgia, unspecified; G89.29 Other chronic pain; F32.A Depression, unspecified; F41.9 Anxiety disorder, unspecified; E78.5 Hyperlipidemia, unspecified; I10 Essential (primary) hypertension; I49.5 Sick sinus syndrome; E87.6 Hypokalemia; I50.9 Heart failure, unspecified; I25.10 Atherosclerotic heart disease of native coronary artery without angina pectoris; N18.30 Chronic kidney disease, stage 3 unspecified; Z95.0 Presence of cardiac pacemaker; Z95.5 Presence of coronary angioplasty implant and graft; Z95.828 Presence of other vascular implants and grafts; Z90.49 Acquired absence of other specified parts of digestive tract; Z90.710 Acquired absence of both cervix and uterus; Z79.899 Other long term (current) drug therapy; Z88.1 Allergy status to other antibiotic agents
CPT/HCPCS: ECHO; 36415; 71045; 80048; 80053; 80061; 81001; 82550; 82553; 83605; 83615; 83735; 83880; 84100; 84132; 84439; 84443; 84484; 85025; 85379; 85610; 85730; 86140; 87040; 87086; 93005; 93306; 96374; 99285; J0696; J1644; J1940; J2920

== ENCOUNTER 2022-08-02 16:56 | Emergency (ER) | payer MEDICARE, BC ==
[~2022-08-02 16:56] MED LIST changes: +CEFDINIR300 MG PO; +CEPHALEXIN250 MG PO; +DECADRON6 MG PO; +LASIX20 MG PO; +LEVOTHYROXINE25 MCG PO; +ZOLOFT100 MG PO
[2022-08-02 19:07] LABS: HEMOGLOBIN 11.8 gm/dl (12.3-15.3); RED BLOOD COUNT 4.18 M/UL (4.00-5.10); WHITE BLOOD COUNT 14.7 K/UL (4.5-11.0)
[2022-08-03] MEDS ORDERED: FUROSEMIDE20 MG PO (12:57)
[2022-08-03] MEDS ORDERED: METOPROLOL TART50 MG PO (12:58)
== END 2022-08-02 20:50 | disposition left against medical advice (07) ==
LOC: ER1 16:56
PROVIDERS: Emergency Medicine
DX: R06.02 Shortness of breath (principal); R05.9 Cough, unspecified; I11.0 Hypertensive heart disease with heart failure; I50.9 Heart failure, unspecified
CPT/HCPCS: 71045; 80053; 82550; 82553; 83880; 84484; 85025; 87040; 93005; 99281